=== PATIENT | female | born 1955 | race Caucasian/White ===

== ENCOUNTER 2022-02-24 11:42 | Outpatient (CLI) | payer BC ==
[~2022-02-24 11:42] MED LIST: Iopamidol 370 76% 100 ML VIAL ONE
== END 2022-02-24 11:43 | disposition home or self-care (01) ==
LOC: CT 11:42
PROVIDERS: ATTEND Thoracic Surgery (Cardiothoracic Vascular Surgery)
DX: I25.10 Atherosclerotic heart disease of native coronary artery without angina pectoris (principal); I65.22 Occlusion and stenosis of left carotid artery
CPT/HCPCS: 70498; 82565; Q9967